=== PATIENT | male | born 1995 | race Caucasian/White ===

== ENCOUNTER 2018-01-21 21:21 | Emergency (ER) | payer OTHER ==
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
[2018-01-21 21:49] VITALS: BP 133/92; PULSE 82; TEMP 98.1; BMI 23.6
[2018-01-22] MEDS ORDERED: IBUPROFEN 600 MG TABLET (FP) PO ONE (00:20)
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
== END 2018-01-22 00:33 | disposition home or self-care (01) ==
LOC: JER 21:21 → JERFT 21:21
DX: R68.84 Jaw pain (principal); S09.8XXA Other specified injuries of head, initial encounter; Y04.0XXA Assault by unarmed brawl or fight, initial encounter; Y93.89 Activity, other specified; Y92.89 Other specified places as the place of occurrence of the external cause; Y99.8 Other external cause status
CPT/HCPCS: 99281-25